=== PATIENT | female | born 1970 | race Caucasian/White ===

== ENCOUNTER 2016-04-25 23:02 | Emergency (ER) | payer OTHER ==
--- NOTE | ~2016-04-25 | CR127 ---
[facility] A Service of [facility] / [facility] RADIOLOGY TEXT RESULTS PATIENT: BJ ORTEGA LOCATION: [facility] : 74 UNIT #: [id number] AGE: [address]: Afsaneh Blount APRN SEX: F ORDER DR: [id number] [facility] [address] [place]. [place], [place] [address] [id number] E MR#: [id number] #: [id number] NAME: BJ ORTEGA : 1970 SEX: F STUDY DATE/TIME: 04/25/2016 19:30 UNIT: [facility] ROOM: STUDY DESCRIPTION: CR Foot Complete Min 3 View Rt Attending Physician: Afsaneh Blount A.P.R.N. Ordering Physician: Afsaneh Blount A.P.R.N. Primary Care Physician: Primary Care Physician No MEDICAL IMAGING REPORT This report is preliminary unless electronic signature is present EXAM Right foot 3 views HISTORY Foot pain lateral foot and fifth digit after fall yesterday. FINDINGS 3 views of the right foot demonstrate mild soft tissue swelling of the fifth digit. Slight widening of the PIP joint of the fifth digit and 3 mm lateral subluxation of the middle phalanx relative to the proximal phalanx could be secondary to ligamentous injury. No opaque foreign body. Remainder of the bone alignment is normal. IMPRESSION 1. No fracture. 2. 3 mm lateral subluxation of the middle phalanx relative to the proximal phalanx in the fifth digit and slight widening of the PIP joint could be secondary to associated soft tissue injury. There is mild soft tissue swelling of the fifth digit. 3. Remainder of the bone alignment is normal. Dictated by... Michele Hernandez M.D. THIS IS AN ELECTRONICALLY VERIFIED REPORT Michele Hernandez M.D. at 04/26/2016 11:26 PM TAWIO/julianne TD: 04/26/2016 08:20 JOB #: [id number] MEDICAL IMAGING REPORT [facility] A Service of [facility] RADIOLOGY TEXT RESULTS PAT[facility]: [facility]J [facility]GA [id number] 74 UNIT #: [id number] AGE: [address]: Afsaneh Blount APRN SEX: F ORDER DR: COPY
--- NOTE | ~2016-04-25 | CR261 ---
[facility] A Service of [facility] RADIOLOGY TEXT RESULTS PATIENT: BJ ORTEGA LOCATION: [facility] : 74 UNIT #: [id number] AGE: [address]: Afsaneh Blount APRN SEX: F ORDER DR: [id number] [facility] [address] [place], [place] [address] [id number] E MR#: [id number] Acc #: [id number] NAME: BJ ORTEGA : 1970 SEX: F STUDY DATE/TIME: 04/25/2016 23:24 UNIT: [facility] ROOM: STUDY DESCRIPTION: CR Toe 2 Views 5Th Rt Attending Physician: Afsaneh lBount A.P.R.N. Ordering Physician: Afsaneh Blount A.P.R.N. Primary Care Physician: Primary Care Physician No MEDICAL IMAGING REPORT This report is preliminary unless electronic signature is present EXAM Right fifth toe 04/25 at 23:24 INDICATIONS History of fall this evening with abnormal radiographs demonstrating a potential dislocation of the fifth middle phalanx. FINDINGS 3 views of the right mid to forefoot are compared with earlier this evening. The fourth and fifth toes have been taped together. This tape does obscure some detail. Alignment of the fifth digit appears normal at this time. There is a questionable fracture at the base of the fifth middle phalanx on the lateral side. This is nondisplaced. IMPRESSION The fourth and fifth toes were taped together for this exam. Anatomic alignment of the fifth digit is now noted. There is a questionable nondisplaced fracture at the base of the fifth middle phalanx on the lateral side. Dictated by... Trevon Worrell Jr., M.D. THIS IS AN ELECTRONICALLY VERIFIED REPORT Trevon Worrell Jr., M.D. at 04/26/2016 12:38 PM Emily TD: 04/26/2016 09:17 JOB #: [id number] MEDICAL IMAGING REPORT COPY
[~2016-04-25 23:02] MED LIST: ALBUTEROL17 GM; CIPRO PO; DIFLUCAN PO; FIORICET 50-321 EACH PO; FLEXERIL PO; FLEXERIL10 MG PO; KCL PO; NAPROSYN-EC500 M1; ROBAXIN; VICODIN 5/1 TAB 5/50 PO; VOLTAREN75 MG PO
== END 2016-04-25 23:35 | disposition home or self-care (01) ==
LOC: CFTX 23:02
DX: S92.511A Displaced fracture of proximal phalanx of right lesser toe(s), initial encounter for closed fracture (principal); Z90.49 Acquired absence of other specified parts of digestive tract; J44.9 Chronic obstructive pulmonary disease, unspecified; Z88.5 Allergy status to narcotic agent; W19.XXXA Unspecified fall, initial encounter
CPT/HCPCS: 73630; 73660; 99283